=== PATIENT | female | born 1930 | race Caucasian/White ===

== ENCOUNTER 2017-01-22 08:42 | Inpatient (IN) ==
[2017-01-22] MEDS: SALINE FLUSH 10ml SYRINGE IVF PRN ×4 (08:50→17:28)
[2017-01-22] MEDS: ALBUTEROL/IPRATROPIUM 2.5mg-0.5mg/3ml NEB AEROSOL SCH ×3 (09:11→09:46)
[2017-01-22] MEDS ORDERED: IOHEXOL 350mg/ml 75ml INJECTION ONE (10:09)
[2017-01-22] MEDS ORDERED: SALINE FLUSH 10ml SYRINGE ONE (10:10)
[2017-01-22] MEDS ORDERED: NS 100 ML ONE (10:10)
--- NOTE | 2017-01-22 10:28 | Emergency Department Report ---
SOB HPI - General Chief Complaint: Shortness of Breath/Dyspnea Stated Complaint: Diff breathing Time Seen by Provider: 01/22/17 08:53 - History of Present Illness 86-year-old female with acute onset shortness of breath during the night. She has had an occasional episode of dyspnea in the past, but rarely. She began coughing yesterday and then developed difficulty breathing overnight. She is a previous smoker, quit nearly 50 years ago. She's had no chest pain, no nausea or vomiting. She is tired, breathing rapidly. No fever overnight, no dysuria, hesitancy or urgency. No sputum production. No headache. - Related Data Home Medications Medication Instructions Recorded Confirmed Allopurinol [Zyloprim] 100 mg PO HS 01/22/17 01/22/17 Amlodipine [Norvasc] 2.5 mg PO BID 01/22/17 01/22/17 Carvedilol 25 mg PO BID 01/22/17 01/22/17 Lansoprazole [Prevacid] 15 mg PO BID PRN 01/22/17 01/22/17 Losartan [Cozaar] 100 mg PO DAILY 01/22/17 01/22/17 Lovastatin [Mevacor] 20 mg PO HS 01/22/17 01/22/17 Previous Rx's Medication Instructions Recorded Acetaminophen [Tylenol] 500 mg PO Q4H tablet 01/25/17 Furosemide [Lasix] 40 mg PO DAILY #30 tablet 01/25/17 Milk of Magnesia [Mom] 30 ml PO BID PRN udc 01/25/17 Allergies Allergy/AdvReac Type Severity Reaction Status Date / Time chlorpromazine Allergy Severe Hepatoxicit Verified 01/22/17 13:18 y codeine Allergy Severe Allergic Verified 01/22/17 13:18 Asthmatic Reaction morphine Allergy Severe Hives Verified 01/22/17 13:18 Review of Systems Limitations: ROS unobtainable due to patient's medical condition PFSH Patient Stated Medical History Cataracts Yes Dental Problems Yes Hearing Loss Yes Macular Degeneration Yes Angina Yes Hypertension Yes Bronchitis Yes Pneumonia Yes Other GI Yes: diverticulitis Hx Urinary Tract Infection Yes Depression Yes - Social History Smoking status: Former smoker Substance use type: does not use Physical Exam - Limitations Limitations: no limitations - General General appearance: alert, in distress (respiratory) - Normal Exams: Head:: Normocephalic without trauma Neck:: Full range of motion, without adenopathy, JVD, bruits or thyromegaly Cardiovascular:: Regular rate and rhythm, without murmur or gallop, Pulses 2+ all extremities, capillary refill, <2 seconds all extremities Abdomen:: Bowel sounds positive, soft, non-tender, non-distended, no hepatosplenomegaly, masses or bruits noted Musculoskeletal:: No tenderness, or deformity noted, good range of motion, all extremities Integumentary:: No rashes, hives, or bruising noted, hair and nails, without abnormality Neurological:: Patient is alert, and oriented, cranial nerves, motor/sensory/ cerebellar, exams w/o gross deficits, to observation Psychiatric:: Patient exhibits, appropriate attention, emotion and affect - Respiratory Respiratory exam: Present: other (mild expiratory wheezes right side, decreased breath sounds on left.) Course Vital Signs Temperature 97.4 F 01/22/17 08:55 Pulse Rate 85 01/22/17 08:55 Respiratory Rate 26 H 01/22/17 08:55 Blood Pressure 142/107 H 01/22/17 08:55 Pulse Oximetry 82 L 01/22/17 08:55 Temperature 97.3 F 01/25/17 07:00 Pulse Rate 65 01/25/17 13:00 Respiratory Rate 18 01/25/17 07:00 Blood Pressure 153/71 H 01/25/17 07:00 Pulse Oximetry 95 01/25/17 07:00 Shortness of Breath/Dyspnea - [facility] Narrative Medical decision making narrative: Patient has normal white count, elevated BNP with CT of the chest which shows possibility of CHF. She does have wheezes on the right lower lobe consistent with bronchitis. She was given Solu-Medrol 125 IV and Lasix 20 mg IV. She was given 1 L normal saline in total while in the ED. She'll be admitted to hospitalist service as she is requiring oxygen, unable to stand and pivot to the commode without dropping O2 sats from 94% to 84%. That was despite having 4 L of oxygen nasal cannula. She does show signs of old cardiac insult on EKG. I do not see acute sign and troponin is negative today. - Differential Diagnosis Likely: congestive heart failure, asthma with exacerbation - Medical Records Attestation: I reviewed the patient's medical records. - Lab Data Attestation: I reviewed the patient's lab results. Result diagrams: 01/24/17 04:36 01/25/17 04:21 Lab Results 01/22/17 01/22/17 01/22/17 Range/Units 09:20 09:25 09:25 WBC 7.1 (4.5-11.0) T/MM3 RBC 4.20 (4.00-5.20) M/MM3 Hgb 11.8 L (12-16) GM/DL Hct 37.5 (36-46) % MCV 89.3 (80-100) UM3 MCH 28.1 (26-34) UUG MCHC 31.5 (31-37) GM/DL RDW Std Deviation 45.2 (36.9-50.2) FL Plt Count 219 (130-400) T/MM3 MPV 10.1 (9.4-12.4) UM3 Immature Gran % (Auto) 0.1 (0.0-0.5) % Neut % (Auto) 74.3 H (33-66) % Lymph % (Auto) 17.1 L (23-45) % Lawrence % (Auto) 4.8 (0-9.0) % Eos % (Auto) 3.1 (0-4) % Baso % (Auto) 0.6 (0-2) % Neut # 5.3 (1.8-7.7) T/MM3 Lymph # 1.2 (1-4.8) T/MM3 Lawrence # 0.3 (0-0.8) T/MM3 Eos # 0.2 (0-0.5) T/MM3 Baso # 0.0 (0-0.2) T/MM3 Abs Immat Gran (auto) 0.01 (0.00-0.03) T/MM3 INR 1.01 (0.99-1.21) ABG pH 7.360 (7.350-7.450) ABG pCO2 44 (34-45) MMHG ABG pO2 52 L (80-100) MMHG ABG HCO3 25 (22-26) MEQ/L ABG Total CO2 26.3 (23-27) MEQ/L ABG O2 Saturation 85.0 L (95.0-98.0) % ABG Base Excess -0.8 (-2.0-2.0) MMOL/L O2 Delivery Method Room air Turbidity (0-20) Sodium (134-144) MEQ/L Potassium (3.6-5) MEQ/L Chloride (98-107) MEQ/L Carbon Dioxide (22-30) MEQ/L Anion Gap (5-15) MEQ/L BUN (7-17) MG/DL Creatinine (0.7-1.2) MG/DL GFR Calculation BUN/Creatinine Ratio (6-26) RATIO Glucose (65-110) MG/DL Calculated Osmolality (261-280) MOSM/KG Calcium (8.4-10.2) MG/DL Magnesium (1.6-2.3) MG/DL Total Bilirubin (0.20-1.30) MG/DL Icterus Index (0-7) AST (14-36) U/L ALT (9-52) U/L Alkaline Phosphatase (38-126) U/L Troponin I (0-0.12) ng/ml B-Natriuretic Peptide (0-175) pg/mL Total Protein (6.3-8.2) G/DL Albumin (3.5-5.0) G/DL Globulin (2.4-3.6) G/DL Albumin/Globulin Ratio (1.1-2.2) RATIO Plasma Lactate (0.6-2.2) MMOL/L Procalcitonin NG/ML Specimen Hemolysis (0-25) Ur Collection Type Urine Color (YELLOW) Urine Clarity Urine pH (5.0-8.0) Ur Specific [place] (1.015-1.025) Urine Protein (NEGATIVE) Urine Glucose (UA) (NEGATIVE) Urine Ketones (NEGATIVE) Urine Occult Blood (NEGATIVE) Urine Nitrate (NEGATIVE) Urine Bilirubin (NEGATIVE) Urine Urobilinogen (NORMAL) EU/DL Ur Leukocyte Esterase (NEGATIVE) Urinalysis Comment 01/22/17 01/22/17 01/22/17 Range/Units 09:25 09:25 09:25 WBC (4.5-11.0) T/MM3 RBC (4.00-5.20) M/MM3 Hgb (12-16) GM/DL Hct (36-46) % MCV (80-100) UM3 MCH (26-34) UUG MCHC (31-37) GM/DL RDW Std Deviation (36.9-50.2) FL Plt Count (130-400) T/MM3 MPV (9.4-12.4) UM3 Immature Gran % (Auto) (0.0-0.5) % Neut % (Auto) (33-66) % Lymph % (Auto) (23-45) % Lawrence % (Auto) (0-9.0) % Eos % (Auto) (0-4) % Baso % (Auto) (0-2) % Neut # (1.8-7.7) T/MM3 Lymph # (1-4.8) T/MM3 Lawrence # (0-0.8) T/MM3 Eos # (0-0.5) T/MM3 Baso # (0-0.2) T/MM3 Abs Immat Gran (auto) (0.00-0.03) T/MM3 INR (0.99-1.21) ABG pH (7.350-7.450) ABG pCO2 (34-45) MMHG ABG pO2 (80-100) MMHG ABG HCO3 (22-26) MEQ/L ABG Total CO2 (23-27) MEQ/L ABG O2 Saturation (95.0-98.0) % ABG Base Excess (-2.0-2.0) MMOL/L O2 Delivery Method Turbidity < 20 (0-20) Sodium 145 H (134-144) MEQ/L Potassium 4.7 (3.6-5) MEQ/L Chloride 110 H (98-107) MEQ/L Carbon Dioxide 25 (22-30) MEQ/L Anion Gap 10 (5-15) MEQ/L BUN 27.0 H (7-17) MG/DL Creatinine 1.1 (0.7-1.2) MG/DL GFR Calculation 47 BUN/Creatinine Ratio 25 (6-26) RATIO Glucose 157 H (65-110) MG/DL Calculated Osmolality 287 H (261-280) MOSM/KG Calcium 9.2 (8.4-10.2) MG/DL Magnesium 2.1 (1.6-2.3) MG/DL Total Bilirubin 0.70 (0.20-1.30) MG/DL Icterus Index < 2 (0-7) AST 31 (14-36) U/L ALT 36 (9-52) U/L Alkaline Phosphatase 101 (38-126) U/L Troponin I < 0.012 (0-0.12) ng/ml B-Natriuretic Peptide 7130 H (0-175) pg/mL Total Protein 7.8 (6.3-8.2) G/DL Albumin 4.1 (3.5-5.0) G/DL Globulin 3.7 H (2.4-3.6) G/DL Albumin/Globulin Ratio 1.1 (1.1-2.2) RATIO Plasma Lactate 1.0 Cancelled (0.6-2.2) MMOL/L Procalcitonin < 0.05 NG/ML Specimen Hemolysis < 15 (0-25) Ur Collection Type Urine Color (YELLOW) Urine Clarity Urine pH (5.0-8.0) Ur Specific [place] (1.015-1.025) Urine Protein (NEGATIVE) Urine Glucose (UA) (NEGATIVE) Urine Ketones (NEGATIVE) Urine Occult Blood (NEGATIVE) Urine Nitrate (NEGATIVE) Urine Bilirubin (NEGATIVE) Urine Urobilinogen (NORMAL) EU/DL Ur Leukocyte Esterase (NEGATIVE) Urinalysis Comment 01/22/17 Range/Units 11:24 WBC (4.5-11.0) T/MM3 RBC (4.00-5.20) M/MM3 Hgb (12-16) GM/DL Hct (36-46) % MCV (80-100) UM3 MCH (26-34) UUG MCHC (31-37) GM/DL RDW Std Deviation (36.9-50.2) FL Plt Count (130-400) T/MM3 MPV (9.4-12.4) UM3 Immature Gran % (Auto) (0.0-0.5) % Neut % (Auto) (33-66) % Lymph % (Auto) (23-45) % Lawrence % (Auto) (0-9.0) % Eos % (Auto) (0-4) % Baso % (Auto) (0-2) % Neut # (1.8-7.7) T/MM3 Lymph # (1-4.8) T/MM3 Lawrence # (0-0.8) T/MM3 Eos # (0-0.5) T/MM3 Baso # (0-0.2) T/MM3 Abs Immat Gran (auto) (0.00-0.03) T/MM3 INR (0.99-1.21) ABG pH (7.350-7.450) ABG pCO2 (34-45) MMHG ABG pO2 (80-100) MMHG ABG HCO3 (22-26) MEQ/L ABG Total CO2 (23-27) MEQ/L ABG O2 Saturation (95.0-98.0) % ABG Base Excess (-2.0-2.0) MMOL/L O2 Delivery Method Turbidity (0-20) Sodium (134-144) MEQ/L Potassium (3.6-5) MEQ/L Chloride (98-107) MEQ/L Carbon Dioxide (22-30) MEQ/L Anion Gap (5-15) MEQ/L BUN (7-17) MG/DL Creatinine (0.7-1.2) MG/DL GFR Calculation BUN/Creatinine Ratio (6-26) RATIO Glucose (65-110) MG/DL Calculated Osmolality (261-280) MOSM/KG Calcium (8.4-10.2) MG/DL Magnesium (1.6-2.3) MG/DL Total Bilirubin (0.20-1.30) MG/DL Icterus Index (0-7) AST (14-36) U/L ALT (9-52) U/L Alkaline Phosphatase (38-126) U/L Troponin I (0-0.12) ng/ml B-Natriuretic Peptide (0-175) pg/mL Total Protein (6.3-8.2) G/DL Albumin (3.5-5.0) G/DL Globulin (2.4-3.6) G/DL Albumin/Globulin Ratio (1.1-2.2) RATIO Plasma Lactate (0.6-2.2) MMOL/L Procalcitonin NG/ML Specimen Hemolysis (0-25) Ur Collection Type Urine, clean catch Urine Color Yellow (YELLOW) Urine Clarity Clear Urine pH 5.0 (5.0-8.0) Ur Specific [place] 1.025 (1.015-1.025) Urine Protein Negative (NEGATIVE) Urine Glucose (UA) Negative (NEGATIVE) Urine Ketones Negative (NEGATIVE) Urine Occult Blood Trace-intact (NEGATIVE) Urine Nitrate Negative (NEGATIVE) Urine Bilirubin Negative (NEGATIVE) Urine Urobilinogen 0.2 (NORMAL) EU/DL Ur Leukocyte Esterase Trace A (NEGATIVE) Urinalysis Comment Microscopic not ind. - Radiology Data Attestation: I reviewed the patient's radiology results. Disposition Clinical Impression: Congestive heart failure, Acute exacerbation of chronic obstructive airways disease Disposition: 02 To [facility] Acute Care Condition: Improved Time of Disposition: 11:57 - Seen By: physician
[2017-01-22] MEDS ORDERED: METHYLPREDNISOLONE SOD SUCC 125mg/2ml INJECTION IVP ONE (11:44)
[2017-01-22] MEDS ORDERED: FUROSEMIDE 20 MG/2 ML INJECTION IVP ONE (12:08)
--- NOTE | 2017-01-22 12:09 | CT Scan Report ---
Indication: dyspnea CT angio pulm emboli: Comparison: None Technique: Patient scanned after 100 cc Omni 300 intravenous contrast with dose reduction imaging technology and reformatted sagittal, coronal and 3-D MIP imaging. Findings: Patient shows no acute findings in the base of the neck. Patient did seem to show degenerative changes in the lower cervical spine. The coronary arteries are well visualized showing no filling defects to support pulmonary thromboembolism. Heart size is prominent with bilateral pleural effusions and bibasilar atelectasis. Limited imaging below the diaphragm shows atherosclerotic changes in the aorta and visceral abdominal vessels. Pulmonary parenchyma demonstrates some increased interstitial markings with bilateral pleural effusions greater on the right side and more prominent right-sided basilar atelectasis. Impression: 1. Findings suggestive of cardiac decompensation with a prominent heart size, increased interstitial pulmonary markings bilateral pleural effusions with bibasilar atelectasis greater on the right 2. No indication of acute pulmonary thromboembolism .
[2017-01-22 12:29] VITALS: BMI 27.5
--- NOTE | 2017-01-22 13:00 | History & Physical Report ---
<Michaela Sy V - Last Filed: 01/22/17 12:50> History of Present Illness Date: 01/22/17 Chief complaint: dyspnea, respiratory failure with hypoxia, pleural effusions HPI: Patient is a pleasant 86-year-old female who resides independently with her family. She reports that she has noticed for the last several days she is more short of breath. Lasting night at approximately 11 p.m. the dyspnea, significantly worsened. This morning due to her ongoing symptoms and significance in dyspnea, she presents to the emergency room for further acute evaluation and treatment. The WBC count found to be normal at 7.1, hemoglobin 11.7, hematocrit 37.5, platelet count 219, neutrophils 74%. Sodium is 145, potassium 4.7, BUN 27, creatinine 1.1, glucose 157. Troponin is undetectable, proBNP 7130. Venous lactate 1.0, pro calcitonin less than 0.05. Urinalysis is unremarkable. ABG does reveal hypoxia with a pO2 of 53, pH 7.360, pCO2 44, bicarbonate 25. INR 1.01. She does tachypnea breathing 28-32 times a minute. She required 4 liters of oxygen by nasal cannula to maintain adequate saturations. Will place patient on room air. She desaturated to 84%. Patient was hypertensive on the emergency room 180-190s over 90s. CT scan of the chest was obtained to rule out. There was, findings that suggested cardiac decompensation with increased interstitial pulmonary markings and bilateral pleural effusions. No acute pulmonary thrombus. Given her hypoxia and tachypnea, obtained with findings of pleural effusions The hospitalist services were contacted and accepted patient for inpatient admission for further evaluation and treatment. Is expected that her stay will be greater than 2 overnights Madelyn is seen on initial examination. She is alert, oriented and pleasant and her family is at the bedside. She reports has been under the care of Dr. Sandeep Liao (crime scene specialist). Did review his notes from the office as he last saw her on October 20, 2016. At that time, patient was started on Lasix 40 milligrams daily, however only took it approximately one week at which time her primary care provider had her discontinue use. Dr. Liao has been working on better blood pressure control. However, patient states has had uncontrolled hypertension for the past 6 months. Urology recommended the following regimen Lasix 40, Coreg 25 twice a day, Norvasc 2.5mg, losartan 100 milligrams. We did discuss advanced directives and she does request to be a full code. 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 Pulmonary hypertension Hyperlipidemia spinal stenosis GERD History of breast cancer with radiation History of colon cancer with resection-07/09/16- Echocardiogram EF 70% adjusted diastolic dysfunction, mild to moderate mitral regurgitation, moderate to severe tricuspid regurgitation, evidence of moderate pulmonary hypertension 07/16/16-nuclear medicine VQ scan- revealed normal ventilation and lung perfusion 07/16/16- Bilateral lower extremity Doppler- negative for DVT Surgical History: Partial colon resection-. Left breast lumpectomy. Cholecystectomy. Colonoscopy Family History: Father-alcoholism, atherosclerosis Mother- hemachromatosis, glaucoma - Social History Smoking status: Former smoker (, quit 1966) Substance use type: does not use Alcohol intake frequency: does not drink Housing: house Household members: family, children Current residence: Apartment/Private Home Social history: Primary care provider, Dr. Fernando Austin Credentialing Coordinator Dr. Sandeep Liao Medications Home Medications Medication Instructions Recorded Confirmed Type Allopurinol [Zyloprim] 100 mg PO HS 01/22/17 01/22/17 History Amlodipine [Norvasc] 2.5 mg PO BID 01/22/17 01/22/17 History Carvedilol [Carvedilol] 25 mg PO BID 01/22/17 01/22/17 History Lansoprazole [Prevacid] 15 mg PO BID PRN 01/22/17 01/22/17 History Losartan [Cozaar] 100 mg PO DAILY 01/22/17 01/22/17 History Lovastatin [Mevacor] 20 mg PO HS 01/22/17 01/22/17 History Naproxen Sodium [Aleve] 220 mg PO PRN 01/22/17 History Allergies Allergy/AdvReac Type Severity Reaction Status Date / Time chlorpromazine Allergy Severe Hepatoxicit Verified 01/22/17 13:18 y codeine Allergy Severe Allergic Verified 01/22/17 13:18 Asthmatic Reaction morphine Allergy Severe Hives Verified 01/22/17 13:18 Exam Vital Signs: Temperature 95.4 F L 01/22/17 12:27 Pulse Rate 76 01/22/17 12:27 Respiratory Rate 26 H 01/22/17 12:27 Blood Pressure 173/90 H 01/22/17 12:27 Pulse Oximetry 93 01/22/17 12:27 Oxygen Delivery Method Nasal Cannula Oxygen Flow Rate 4 Telemetry Rhythm: Sinus Rhythm Height: 1.65 m Weight: 75.1 kg Body Mass Index: 27.5 - Constitutional Present: no acute distress, mild distress, well developed - Routine HEENT Exam Eye: Present: EOMI, PERRL ENT: Present: mucous membranes moist, dentition normal - Routine Respiratory Exam Present: dyspnea, CTA bilaterally, diminished air movement (bases bilaterally). Absent: wheezes Comments: Conversational dyspnea. On exam - Routine Cardiovascular Exam Present: RRR, S1, S2. Absent: murmur - Routine Abdominal Exam Present: soft, normoactive bowel sounds, non distended. Absent: tenderness - Routine Extremities Exam Present: edema (bilateral lower ext 1+), normal capillary refill - Routine Back/Spine/Pelvis Exam Back/Spine: Present: full ROM - Routine Skin Exam Present: intact, dry, warm - Routine Neurological Exam Present: alert, oriented X3, CN II-XII intact - Routine Psychiatric Exam Present: normal affect, normal thought process Results - Labs CBC & Chem 7: 01/22/17 09:25 01/22/17 09:25 Assessment and Plan (1) Respiratory failure with hypoxia Current visit: Yes Status: Acute (2) Pleural effusion Current visit: Yes Status: Acute DVT Prophylaxis: SCD's Resuscitation Status: Full Code Assessment and Plan: Impression Acute respiratory failure with hypoxia requiring oxygen Bilateral pleural effusions Peripheral edema History of uncontrolled hypertension Known pulmonary hypertension Hyperlipidemia Bgi-rgvikam-yxgsnntue diabetic Chronic kidney disease Chronic back pain GERD Plan Patient to inpatient status under the care of Dr. Quinones for acute respiratory failure with hypoxia and pleural effusions. Did receive one-time dose of Lasix 20 milligrams IV while in the emergency room today. We will continue with scheduled Lasix for more aggressive diuresing. Monitor patient on Cardiac telemetry. Will obtain echocardiogram. Did review last echo results from June 2016. Currently MAGGIC heart failure risk calculator reveals 31 points, which is a 26 % one-year mortality for this patient using her last EF of of 70% Continue to monitor blood pressure carefully. Current recommended hypertension management as per Dr. Liao is to continue on losartan 100 milligrams daily, Coreg 25 milligrams twice a day, Norvasc 2.5 milligrams twice a day. He also recommended Lasix 40 milligrams daily She will likely need to be on this at time of discharge. It appears that patient did not take any of her antihypertensives this morning. Will have patient take the Coreg and losartan now on admission. Recommend avoiding NSAIDs as this can rise blood pressure. Would recommend Tylenol as needed for chronic back pain. SCDs to bilateral lower extremity for DVT prophylaxis Continue on home Prevacid for GI protection given GERD Patient does request to be a full code and this order is written. Will discuss further orders and plan of care with attending, Dr. Quinones. At time of discharge medical care will return to primary care provider, Dr. Austin and crime scene specialist, Dr. Liao. Sepsis Assessment - Evaluation Sepsis screening result: No Definite Risk Hospital Course Summary Disclaimer: The visit summary below is not to be considered part of the above Progress Note. Hospital Course: 01/22/17- Admit Acute respiratory failure with hypoxia requiring oxygen Bilateral pleural effusions Peripheral edema History of uncontrolled hypertension Known pulmonary hypertension Hyperlipidemia Kdi-woywyfs-yoyvtxfdo diabetic Chronic kidney disease Chronic back pain GERD Plan Patient to inpatient status under the care of Dr. Quinones for acute respiratory failure with hypoxia and pleural effusions. Did receive one-time dose of Lasix 20 milligrams IV while in the emergency room today. We will continue with scheduled Lasix for more aggressive diuresing. Monitor patient on Cardiac telemetry. Will obtain echocardiogram. Did review last echo results from June 2016. Currently MAGGIC heart failure risk calculator reveals 31 points, which is a 26 % one-year mortality for this patient using her last EF of of 70% Continue to monitor blood pressure carefully. Current recommended hypertension management as per Dr. Liao is to continue on losartan 100 milligrams daily, Coreg 25 milligrams twice a day, Norvasc 2.5 milligrams twice a day. He also recommended Lasix 40 milligrams daily She will likely need to be on this at time of discharge. It appears that patient did not take any of her antihypertensives this morning. Will have patient take the Coreg and losartan now on admission. Recommend avoiding NSAIDs as this can rise blood pressure. Would recommend Tylenol as needed for chronic back pain. SCDs to bilateral lower extremity for DVT prophylaxis Continue on home Prevacid for GI protection given GERD Patient does request to be a full code and this order is written. Will discuss further orders and plan of care with attending, Dr. Quinones. At time of discharge medical care will return to primary care provider, Dr. Austin and crime scene specialist, Dr. Liao. <JoniMaribel A - Last Filed: 01/22/17 17:49> History of Present Illness Date: 01/22/17 [facility] Patient Stated Medical History Cataracts Yes Dental Problems Yes Macular Degeneration Yes Angina Yes: yrs ago Hypertension Yes Bronchitis Yes Pneumonia Yes Other GI Yes: diverticulitis Depression Yes Exam Vital Signs: Temperature 95.5 F L 01/22/17 15:00 Pulse Rate 74 01/22/17 16:10 Respiratory Rate 18 01/22/17 16:10 Blood Pressure 161/94 H 01/22/17 15:00 Pulse Oximetry 93 01/22/17 16:10 Oxygen Delivery Method Nasal Cannula Oxygen Flow Rate 4 Height: 5 ft 5 in Weight: 165 lb 9.074 oz Results - Labs CBC & Chem 7: 01/22/17 13:31 01/22/17 13:31 Assessment and Plan (1) Respiratory failure with hypoxia Current visit: Yes Status: Acute (2) Pleural effusion Current visit: Yes Status: Acute Assessment and Plan: I have independently evaluated and examined this patient. I reviewed the chart, the patient's history, and the AEROSP[employer] ENGINEER OFFICER ARMAMENT/PA's documented findings as above. We discussed and formulated the assessment and plan as above with additions as below. The patient was seen and examined by me this afternoon. Agree with assessment and plan as listed above. Suspect most of the patient's problem is fluid overload. She is responding nicely to Lasix. We will need to watch her potassium closely. She has had long-standing uncontrolled hypertension followed by Dr. Sandeep Liao. Her care was discussed with the patient in her family. Their questions were answered. Hospital Course Summary Disclaimer: The visit summary below is not to be considered part of the above Progress Note.
[2017-01-22] MEDS: CARVEDILOL 25 MG TABLET PO SCH ×2 (13:49→17:28)
[2017-01-22] MEDS: LOSARTAN 100 MG TABLET PO SCH (13:49)
[2017-01-22] MEDS: ACETAMINOPHEN 500 MG TABLET PO SCH ×3 (13:55→21:04)
[2017-01-22] MEDS: FUROSEMIDE 20 MG/2 ML INJECTION IVP SCH (17:27)
[2017-01-22] MEDS: ALLOPURINOL 100 MG TABLET PO SCH (21:04)
[2017-01-22] MEDS: LOVASTATIN 20 MG TABLET PO SCH (21:05)
[2017-01-22] MEDS: AMLODIPINE 2.5 MG TABLET PO SCH (21:05)
[2017-01-23] MEDS: FUROSEMIDE 20 MG/2 ML INJECTION IVP SCH ×2 (00:56→09:11)
[2017-01-23] MEDS: ACETAMINOPHEN 500 MG TABLET PO SCH ×6 (00:57→21:09)
[2017-01-23] MEDS: SALINE FLUSH 10ml SYRINGE IVF PRN ×2 (00:59→09:11)
[2017-01-23] MEDS ORDERED: PANTOPRAZOLE 40 MG TABLET PO PRN (06:30)
[2017-01-23] MEDS: AMLODIPINE 2.5 MG TABLET PO SCH ×2 (09:11→21:09)
[2017-01-23] MEDS: LOSARTAN 100 MG TABLET PO SCH (09:11)
[2017-01-23] MEDS: CARVEDILOL 25 MG TABLET PO SCH ×2 (09:12→17:22)
--- NOTE | 2017-01-23 11:46 | Progress Note ---
Subjective: The patient was seen11:20 at with her daughter and son-in-law at bedside. The patient reports doing well and slept well during the night. Denies fevers, chills, sweats. Denies sore throat, shortness of breath, dyspnea on exertion, cough, sputum production, chest pain. Denies nausea, vomiting or for she's had 2 episodes of loose stools and was incontinent in bed once. She is urinating without difficulty, denies dysuria. Overall she is doing much better this morning. She is currently on room air. Her blood pressure is actually down to 148/71. Objective Vital signs: Temperature 96.9 F 01/23/17 09:00 Pulse Rate 68 01/23/17 09:00 Respiratory Rate 16 01/23/17 09:00 Blood Pressure 148/71 H 01/23/17 09:00 Pulse Oximetry 97 01/23/17 09:21 Oxygen Delivery Method Room Air Oxygen Flow Rate 2 Weight: 164 lb 7.437 oz - Additional findings Additional findings: In general, the patient is alert and oriented 3, cooperative with exam, and in no respiratory distress. HEENT: Head is atraumatic, normocephalic, no conjunctival petechiae, no oral thrush, mucous membranes are moist and pink. Lungs: Clear to auscultation without wheezes, crackles or rhonchi CV: Regular rate and rhythm without murmur Abdomen: Soft, nontender, bowel sounds are present, there is no guarding no rebound. Extremities: No clubbing, no cyanosis, no edema. Skin: Warm and dry no sign of rash Neuro: Patient is alert Results - Labs CBC & Chem 7: 01/23/17 05:15 01/23/17 05:15 Assessment and Plan (1) Respiratory failure with hypoxia Current visit: Yes Status: Acute (2) Pleural effusion Current visit: Yes Status: Acute Assessment and Plan: Acute respiratory failure with hypoxia requiring oxygen related to fluid overload, greatly improved today after IV Lasix Bilateral pleural effusions improved Peripheral edema resolved History of uncontrolled hypertension-her blood pressure today is 148/71 Known pulmonary hypertension Hyperlipidemia Cpm-uifpgec-jtfydhzqw diabetic Chronic kidney disease-her creatinine is up today at 1.3 Chronic back pain GERD Plan Monitor patient on Cardiac telemetry. Results of echocardiogram were reviewed yesterday, formal report is not on the chart today. I believe she did have mitral regurg, will await to confirm that with the final reading. Did review last echo results from June 2016. Continue to monitor blood pressure carefully. Current recommended hypertension management as per Dr. Liao is to continue on losartan 100 milligrams daily, Coreg 25 milligrams twice a day, Norvasc 2.5 milligrams twice a day. He also recommended Lasix 40 milligrams daily and we will restart that today. She may need to potassium supplementation as well. Will recheck lab in the morning. Recommend avoiding NSAIDs as this can rise blood pressure. Would recommend Tylenol as needed for chronic back pain. SCDs to bilateral lower extremity for DVT prophylaxis Continue on home Prevacid for GI protection given GERD At time of discharge medical care will return to primary care provider, Dr. Austin and brick paving checker, Dr. Liao. The patient has an appointment was Dr. Liao scheduled for next Tuesday. This was discussed with patient and her family. Sepsis Assessment - Evaluation Sepsis screening result: No Definite Risk Hospital Course Summary Disclaimer: The visit summary below is not to be considered part of the above Progress Note. Hospital Course: 01/22/17- Admit Acute respiratory failure with hypoxia requiring oxygen Bilateral pleural effusions Peripheral edema History of uncontrolled hypertension Known pulmonary hypertension Hyperlipidemia Fmn-fjmijuu-lnvhhjrwa diabetic Chronic kidney disease Chronic back pain GERD Plan Patient to inpatient status under the care of Dr. Quinones for acute respiratory failure with hypoxia and pleural effusions. Did receive one-time dose of Lasix 20 milligrams IV while in the emergency room today. We will continue with scheduled Lasix for more aggressive diuresing. Monitor patient on Cardiac telemetry. Will obtain echocardiogram. Did review last echo results from June 2016. Currently MAGGIC heart failure risk calculator reveals 31 points, which is a 26 % one-year mortality for this patient using her last EF of of 70% Continue to monitor blood pressure carefully. Current recommended hypertension management as per Dr. Liao is to continue on losartan 100 milligrams daily, Coreg 25 milligrams twice a day, Norvasc 2.5 milligrams twice a day. He also recommended Lasix 40 milligrams daily She will likely need to be on this at time of discharge. It appears that patient did not take any of her antihypertensives this morning. Will have patient take the Coreg and losartan now on admission. Recommend avoiding NSAIDs as this can rise blood pressure. Would recommend Tylenol as needed for chronic back pain. SCDs to bilateral lower extremity for DVT prophylaxis Continue on home Prevacid for GI protection given GERD Patient does request to be a full code and this order is written. Will discuss further orders and plan of care with attending, Dr. Quinones. At time of discharge medical care will return to primary care provider, Dr. Austin and brick paving checker, Dr. Liao. 01/23/17 11:52 Acute respiratory failure with hypoxia requiring oxygen related to fluid overload, greatly improved today after IV Lasix Bilateral pleural effusions improved Peripheral edema resolved History of uncontrolled hypertension-her blood pressure today is 148/71 Known pulmonary hypertension Hyperlipidemia Tvq-lxiqzcz-rpnlmjdfb diabetic Chronic kidney disease-her creatinine is up today at 1.3 Chronic back pain GERD Plan Monitor patient on Cardiac telemetry. Results of echocardiogram were reviewed yesterday, formal report is not on the chart today. I believe she did have mitral regurg, will await to confirm that with the final reading. Did review last echo results from June 2016. Continue to monitor blood pressure carefully. Current recommended hypertension management as per Dr. Liao is to continue on losartan 100 milligrams daily, Coreg 25 milligrams twice a day, Norvasc 2.5 milligrams twice a day. He also recommended Lasix 40 milligrams daily and we will restart that today. She may need to potassium supplementation as well. Will recheck lab in the morning. Recommend avoiding NSAIDs as this can rise blood pressure. Would recommend Tylenol as needed for chronic back pain. SCDs to bilateral lower extremity for DVT prophylaxis Continue on home Prevacid for GI protection given GERD At time of discharge medical care will return to primary care provider, Dr. Austin and brick paving checker, Dr. Liao. The patient has an appointment was Dr. Liao scheduled for next Tuesday. This was discussed with patient and her family
--- NOTE | 2017-01-23 14:12 | XRay Report ---
Indication: hypoxia XR chest 2V: Comparison: None Technique: PA and lateral chest Findings: Patient shows mild cardiac prominence with increased interstitial markings and minimal blunting of both costophrenic angles suggesting small effusions. No acute bony abnormality appreciated. Degenerative changes seen particularly about the right shoulder. Impression: Mild cardiac prominence with increased interstitial markings and small amount of blunting of both costophrenic angles suggesting small effusions. Findings would suggest possibility of mild cardiac decompensation. .
[2017-01-23] MEDS: ALLOPURINOL 100 MG TABLET PO SCH (21:09)
[2017-01-23] MEDS: LOVASTATIN 20 MG TABLET PO SCH (21:09)
[2017-01-24] MEDS: ACETAMINOPHEN 500 MG TABLET PO SCH ×6 (01:49→21:34)
[2017-01-24] MEDS: SALINE FLUSH 10ml SYRINGE IVF PRN (06:08)
--- NOTE | 2017-01-24 07:36 | Echocardiogram ---
DATE OF PROCEDURE January 22, 2017 REFERRING PHYSICIAN Michaela Sy, [facility] This is a two-dimensional echo with spectral Doppler, color-flow and M-mode. It was obtained in a patient with edema, CHF and hypertension. Left atrial dimension is increased. Left ventricular end-diastolic dimension is normal. Left ventricle wall thickness is increased. LV systolic function is normal with ejection fraction of 65%. Right atrium is dilated. Right ventricle is dilated. Aortic root dimension is normal. Mitral valve annulus is calcified. Mitral valve leaflets are normal with severe mitral regurgitation. Aortic valve shows fibrocalcific changes with mild restriction on opening motion. Using Doppler studies aortic valve area is calculated at 1.28 cm2. There is no aortic insufficiency. Tricuspid valve shows moderate tricuspid regurgitation with gtpvzwkd-zf-rkvuji pulmonary hypertension with estimated pulmonary artery systolic pressure of 66. Pulmonary valve shows no pulmonary insufficiency. There is no pericardial effusion. IMPRESSION 1. Normal LV systolic function with ejection fraction of 65%. 2. Biatrial dilation. 3. Right ventricular dilation. 4. Concentric left ventricular hypertrophy. 5. Mitral annulus calcification with severe mitral regurgitation. 6. Mild aortic stenosis with a valve area of 1.28 cm2. 7. Moderate tricuspid regurgitation with [id number]-dr-[id number] pulmonary hypertension with estimated pulmonary artery systolic pressure of 66. MTDD
[2017-01-24] MEDS: AMLODIPINE 2.5 MG TABLET PO SCH ×2 (08:04→21:34)
[2017-01-24] MEDS: FUROSEMIDE 40 MG TABLET PO SCH (08:04)
[2017-01-24] MEDS: CARVEDILOL 25 MG TABLET PO SCH ×2 (08:04→17:05)
[2017-01-24] MEDS: LOSARTAN 100 MG TABLET PO SCH (08:04)
--- NOTE | 2017-01-24 11:02 | Progress Note ---
<Michaela Sy V - Last Filed: 01/24/17 10:58> Subjective: Madelyn is seen this morning in follow up. She is breathing on room air without distress. She reports that overall she is feeling better however does continue to get "winded" when up ambulating. She denies pain and reports overall feels tired. Voiding without difficulty, No bowel movements since admission. Objective Vital signs: Temperature 97.5 F 01/24/17 07:39 Pulse Rate 68 01/24/17 07:39 Respiratory Rate 16 01/24/17 07:39 Blood Pressure 158/74 H 01/24/17 07:39 Pulse Oximetry 93 01/24/17 07:39 Oxygen Delivery Method Room Air Oxygen Flow Rate 2 Weight: 160 lb 11.472 oz - Constitutional Present: no acute distress, well nourished, well developed - Routine HEENT Exam Eye: Present: EOMI, PERRL ENT: Present: mucous membranes moist, dentition normal - Routine Respiratory Exam Present: CTA bilaterally. Absent: wheezes - Routine Cardiovascular Exam Present: RRR, S1, S2. Absent: murmur - Routine Abdominal Exam Present: soft, normoactive bowel sounds, non distended. Absent: tenderness - Routine Extremities Exam Present: edema (bilateral lower ext), full ROM, normal capillary refill - Routine Back/Spine/Pelvis Exam Back/Spine: Present: full ROM - Routine Skin Exam Present: intact, dry, warm - Routine Neurological Exam Present: alert, oriented X3, CN II-XII intact - Routine Lymphatic Exam Lymphatic: Absent: adenopathy - Routine Psychiatric Exam Present: normal affect, normal thought process Results - Labs CBC & Chem 7: 01/24/17 04:36 01/24/17 04:36 Assessment and Plan (1) Respiratory failure with hypoxia Current visit: Yes Status: Acute (2) Pleural effusion Current visit: Yes Status: Acute Assessment and Plan: Acute respiratory failure with hypoxia requiring oxygen related to fluid overload, greatly improved today after IV Lasix Bilateral pleural effusions improved Peripheral edema resolved History of uncontrolled hypertension-her blood pressure today is 148/71 Known pulmonary hypertension Hyperlipidemia Ilx-zdpkqfl-mndyrrmdm diabetic Chronic kidney disease-her creatinine is up today at 1.3 Chronic back pain GERD Plan 01/24/17 Able to be down to room air this morning. She does continue to feel somewhat winded when she is up and ambulating. Will have respiratory therapy obtain an ambulatory saturation. Continue to monitor blood pressure carefully. Continue on current regimen of antihypertensives losartan 100 milligrams daily, Coreg 25 milligrams twice a day , Norvasc 2.5 milligrams twice a day. Continue with Lasix 40 milligrams daily for ongoing diuresising. Monitor potassium as she may require PO supplementation Consult placed to PT and OT to evaluate ambulation and strengthening. Tylenol as needed for chronic back pain. Sepsis Assessment - Evaluation Sepsis screening result: No Definite Risk Hospital Course Summary Disclaimer: The visit summary below is not to be considered part of the above Progress Note. Hospital Course: 01/22/17- Admit Acute respiratory failure with hypoxia requiring oxygen Bilateral pleural effusions Peripheral edema History of uncontrolled hypertension Known pulmonary hypertension Hyperlipidemia Cvk-ernjdwt-wgmxwkmgx diabetic Chronic kidney disease Chronic back pain GERD Plan Patient to inpatient status under the care of Dr. Quinones for acute respiratory failure with hypoxia and pleural effusions. Did receive one-time dose of Lasix 20 milligrams IV while in the emergency room today. We will continue with scheduled Lasix for more aggressive diuresing. Monitor patient on Cardiac telemetry. Will obtain echocardiogram. Did review last echo results from June 2016. Currently MAGGIC heart failure risk calculator reveals 31 points, which is a 26 % one-year mortality for this patient using her last EF of of 70% Continue to monitor blood pressure carefully. Current recommended hypertension management as per Dr. Liao is to continue on losartan 100 milligrams daily, Coreg 25 milligrams twice a day, Norvasc 2.5 milligrams twice a day. He also recommended Lasix 40 milligrams daily She will likely need to be on this at time of discharge. It appears that patient did not take any of her antihypertensives this morning. Will have patient take the Coreg and losartan now on admission. Recommend avoiding NSAIDs as this can rise blood pressure. Would recommend Tylenol as needed for chronic back pain. SCDs to bilateral lower extremity for DVT prophylaxis Continue on home Prevacid for GI protection given GERD Patient does request to be a full code and this order is written. Will discuss further orders and plan of care with attending, Dr. Quinones. At time of discharge medical care will return to primary care provider, Dr. Austin and assistant professor of communication, Dr. Liao. 01/23/17 11:52 Acute respiratory failure with hypoxia requiring oxygen related to fluid overload, greatly improved today after IV Lasix Bilateral pleural effusions improved Peripheral edema resolved History of uncontrolled hypertension-her blood pressure today is 148/71 Known pulmonary hypertension Hyperlipidemia Aar-ezxrvic-xmzpdczbe diabetic Chronic kidney disease-her creatinine is up today at 1.3 Chronic back pain GERD Plan Monitor patient on Cardiac telemetry. Results of echocardiogram were reviewed yesterday, formal report is not on the chart today. I believe she did have mitral regurg, will await to confirm that with the final reading. Did review last echo results from June 2016. Continue to monitor blood pressure carefully. Current recommended hypertension management as per Dr. Liao is to continue on losartan 100 milligrams daily, Coreg 25 milligrams twice a day, Norvasc 2.5 milligrams twice a day. He also recommended Lasix 40 milligrams daily and we will restart that today. She may need to potassium supplementation as well. Will recheck lab in the morning. Recommend avoiding NSAIDs as this can rise blood pressure. Would recommend Tylenol as needed for chronic back pain. SCDs to bilateral lower extremity for DVT prophylaxis Continue on home Prevacid for GI protection given GERD At time of discharge medical care will return to primary care provider, Dr. Austin and assistant professor of communication, Dr. Liao. The patient has an appointment was Dr. Liao scheduled for next Tuesday. Plan 01/24/17 Able to be down to room air this morning. She does continue to feel somewhat winded when she is up and ambulating. Will have respiratory therapy obtain an ambulatory saturation. Continue to monitor blood pressure carefully. Continue on current regimen of antihypertensives losartan 100 milligrams daily, Coreg 25 milligrams twice a day , Norvasc 2.5 milligrams twice a day. Continue with Lasix 40 milligrams daily for ongoing diuresising. Monitor potassium as she may require PO supplementation Consult placed to PT and OT to evaluate ambulation and strengthening. Tylenol as needed for chronic back pain. <Maribel Quinones - Last Filed: 01/24/17 14:54> Objective Vital signs: Temperature 97.5 F 01/24/17 07:39 Pulse Rate 76 01/24/17 11:22 Respiratory Rate 16 01/24/17 07:39 Blood Pressure 158/74 H 01/24/17 07:39 Pulse Oximetry 96 01/24/17 11:22 Oxygen Delivery Method Room Air Oxygen Flow Rate 2 Results - Labs CBC & Chem 7: 01/24/17 04:36 01/24/17 04:36 - Imaging and Cardiology CT scan - chest Additional comments: This morning the preliminary radiology report from the rash on her CT angiography has been scanned in. 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 Assessment and Plan (1) Respiratory failure with hypoxia Current visit: Yes Status: Acute (2) Pleural effusion Current visit: Yes Status: Acute Assessment and Plan: I have independently evaluated and examined this patient. I reviewed the chart, the patient's history, and the HOCKEY PLAYER/PA's documented findings as above. We discussed and formulated the assessment and plan as above with additions as below. The patient was seen 14:20 The patient reports doing well and slept well during the night until she was woken up for blood work and vital signs. Denies fevers, chills, sweats. Denies sore throat, shortness of breath, dyspnea on exertion, she has a dry cough. She continues to be constipated. Is urinating without difficulty, denies dysuria. In general, the patient is alert and oriented 3, cooperative with exam, and in no respiratory distress. HEENT: Head is atraumatic, normocephalic, no conjunctival petechiae, no oral thrush, mucous membranes are moist and pink. Lungs: Clear to auscultation without wheezes, crackles, occasional rhonchi present CV: Regular rate and rhythm without murmur Abdomen: Soft, nontender, bowel sounds are present, there is no guarding no rebound. Extremities: No clubbing, no cyanosis, trace edema. Skin: Warm and dry no sign of rash Neuro: Patient is alert Please note she has an incidental adenoma on the right The patient has not had a bowel movement since admission and will start milk of magnesia when necessary. She feels much better since resuming Lasix, her blood pressures are markedly improved. She expresses many concerns about who she is should talk to after she is discharged if she notes a change in her weight or increasing swelling of her ankles. She does have an appointment to see Dr. Sandeep Liao on Tuesday, I suggested she talk with him about these issues as well. We'll recheck BMP in the morning, suspect she will need potassium supplement at discharge Have ordered an overnight oximetry oximetry for this evening And to supinate discharge tomorrow if all goes well. Hospital Course Summary Disclaimer: The visit summary below is not to be considered part of the above Progress Note.
[2017-01-24] MEDS: LOVASTATIN 20 MG TABLET PO SCH (21:34)
[2017-01-24] MEDS: ALLOPURINOL 100 MG TABLET PO SCH (21:34)
[2017-01-25] MEDS: ACETAMINOPHEN 500 MG TABLET PO SCH ×3 (02:08→14:18)
[2017-01-25 07:44] VITALS: BP 153/71; RESP 18; TEMP 97.3; O2SAT 95
[2017-01-25] MEDS: LOSARTAN 100 MG TABLET PO SCH (08:52)
[2017-01-25] MEDS: CARVEDILOL 25 MG TABLET PO SCH (08:52)
[2017-01-25] MEDS: AMLODIPINE 2.5 MG TABLET PO SCH (08:52)
[2017-01-25] MEDS: FUROSEMIDE 40 MG TABLET PO SCH (08:52)
--- NOTE | 2017-01-25 13:03 | Discharge Instructions ---
Discharge Plan - Med Rec/Dispo Referrals/Follow Up: Arnel Austin MD [Family Provider] - Sandeep Liao MD [Physician] - (Follow up tomorrow 01/26 as planned) [place] Instructions: Hypoxia (GEN) Prescriptions: New Acetaminophen [Tylenol] 500 mg PO Q4H tablet Milk of Magnesia [Mom] 30 ml PO BID PRN udc PRN Reason: Constipation Furosemide [Lasix] 40 mg PO DAILY #30 tablet Continue Lovastatin [Mevacor] 20 mg PO HS Amlodipine [Norvasc] 2.5 mg PO BID Losartan [Cozaar] 100 mg PO DAILY Lansoprazole [Prevacid] 15 mg PO BID PRN PRN Reason: Prn Orders Allopurinol [Zyloprim] 100 mg PO HS Carvedilol 25 mg PO BID Discontinued Naproxen Sodium [Aleve] 220 mg PO PRN PRN Reason: Pain Discharge Instructions/Outpatient Orders: Final Provider Discharge Instructions Location: Determined By Patient Final Provider Discharge Instructions Location: Determined By Patient - Disposition 01 Discharged Home, Self-Care
--- NOTE | 2017-01-25 13:23 | Discharge Summary ---
<Michaela Sy V - Last Filed: 01/25/17 13:20> Discharge Information Date of admission: 01/22/17 12:12 Anticipated date of discharge: 01/25/17 Attending Physician: Maribel Quinones MD Primary care physician: Arnel Austin MD Consults: None - Discharge Diagnosis Discharge Diagnosis: Pleural effusion Acute respiratory failure with hypoxia Peripheral edema Uncontrolled hypertension chronic kidney disease Chronic back pain - Procedures Procedures: None - Laboratory Labs: 01/24/17 04:36 01/25/17 04:21 - Microbiology Microbiology 01/22/17 09:25 Peripheral/Iv Start Blood Culture - Preliminary No Growth After 3 Days 01/22/17 09:33 Peripheral/Iv Start Blood Culture - Preliminary No Growth After 3 Days - Radiology Radiology: 01/22/17-CT chest-Impression: 1. Findings suggestive of cardiac decompensation with a prominent heart size, increased interstitial pulmonary markings bilateral pleural effusions with bibasilar atelectasis greater on the right 2. No indication of acute pulmonary thromboembolism 01/22/17-echocardiogram IMPRESSION 1. Normal LV systolic function with ejection fraction of 65%. 2. Biatrial dilation. 3. Right ventricular dilation. 4. Concentric left ventricular hypertrophy. 5. Mitral annulus calcification with severe mitral regurgitation. 6. Mild aortic stenosis with a valve area of 1.28 cm2. 7. Moderate tricuspid regurgitation with miiblpqz-[id number]-vzaoga pulmonary hypertension with estimated pulmonary artery systolic pressure of 66. 01/23/17- Chest X-ray- Impression: Mild cardiac prominence with increased interstitial markings and small amount of blunting of both costophrenic angles suggesting small effusions. Findings would suggest possibility of mild cardiac decompensation. - Pathology None History of Present Illness HPI: Patient is a pleasant 86-year-old female who resides independently with her family. She reports that she has noticed for the last several days she is more short of breath. Lasting night at approximately 11 p.m. the dyspnea, significantly worsened. This morning due to her ongoing symptoms and significance in dyspnea, she presents to the emergency room for further acute evaluation and treatment. The WBC count found to be normal at 7.1, hemoglobin 11.7, hematocrit 37.5, platelet count 219, neutrophils 74%. Sodium is 145, potassium 4.7, BUN 27, creatinine 1.1, glucose 157. Troponin is undetectable, proBNP 7130. Venous lactate 1.0, pro calcitonin less than 0.05. Urinalysis is unremarkable. ABG does reveal hypoxia with a pO2 of 53, pH 7.360, pCO2 44, bicarbonate 25. INR 1.01. She does tachypnea breathing 28-32 times a minute. She required 4 liters of oxygen by nasal cannula to maintain adequate saturations. Will place patient on room air. She desaturated to 84%. Patient was hypertensive on the emergency room 180-190s over 90s. CT scan of the chest was obtained to rule out. There was, findings that suggested cardiac decompensation with increased interstitial pulmonary markings and bilateral pleural effusions. No acute pulmonary thrombus. Given her hypoxia and tachypnea, obtained with findings of pleural effusions The hospitalist services were contacted and accepted patient for inpatient admission for further evaluation and treatment. Is expected that her stay will be greater than 2 overnights Madelyn is seen on initial examination. She is alert, oriented and pleasant and her family is at the bedside. She reports has been under the care of Dr. Sandeep Liao (doughnut maker). Did review his notes from the office as he last saw her on October 20, 2016. At that time, patient was started on Lasix 40 milligrams daily, however only took it approximately one week at which time her primary care provider had her discontinue use. Dr. Liao has been working on better blood pressure control. However, patient states has had uncontrolled hypertension for the past 6 months. Urology recommended the following regimen Lasix 40, Coreg 25 twice a day, Norvasc 2.5mg, losartan 100 milligrams. We did discuss advanced directives and she does request to be a full code. Objective Vital signs: Temperature 97.3 F 01/25/17 07:00 Pulse Rate 72 01/25/17 07:00 Respiratory Rate 18 01/25/17 07:00 Blood Pressure 153/71 H 01/25/17 07:00 Pulse Oximetry 95 01/25/17 07:00 Oxygen Delivery Method Room Air Oxygen Flow Rate 2 Weight: 158 lb 8.198 oz - Constitutional Present: no acute distress, well nourished, well developed - Routine HEENT Exam Eye: Present: EOMI, PERRL ENT: Present: mucous membranes moist, dentition normal - Routine Respiratory Exam Present: CTA bilaterally. Absent: wheezes - Routine Cardiovascular Exam Present: RRR, S1, S2. Absent: murmur - Routine Abdominal Exam Present: soft, normoactive bowel sounds, non distended. Absent: tenderness - Routine Extremities Exam Present: no edema, full ROM, normal capillary refill - Routine Back/Spine/Pelvis Exam Back/Spine: Present: full ROM - Routine Skin Exam Present: intact, dry, warm - Routine Neurological Exam Present: alert, oriented X3, CN II-XII intact - Routine Lymphatic Exam Lymphatic: Absent: adenopathy - Routine Psychiatric Exam Present: normal affect Hospital Course This is a general summary of the patient's hospital course. For more details refer to the complete medical record. Hospital course: 01/22/17- Admit Acute respiratory failure with hypoxia requiring oxygen Bilateral pleural effusions Peripheral edema History of uncontrolled hypertension Known pulmonary hypertension Hyperlipidemia Pvn-mypqfjv-uiztkgqso diabetic Chronic kidney disease Chronic back pain GERD Plan Patient to inpatient status under the care of Dr. Quinones for acute respiratory failure with hypoxia and pleural effusions. Did receive one-time dose of Lasix 20 milligrams IV while in the emergency room today. We will continue with scheduled Lasix for more aggressive diuresing. Monitor patient on Cardiac telemetry. Will obtain echocardiogram. Did review last echo results from June 2016. Currently MAGGIC heart failure risk calculator reveals 31 points, which is a 26 % one-year mortality for this patient using her last EF of of 70% Continue to monitor blood pressure carefully. Current recommended hypertension management as per Dr. Liao is to continue on losartan 100 milligrams daily, Coreg 25 milligrams twice a day, Norvasc 2.5 milligrams twice a day. He also recommended Lasix 40 milligrams daily She will likely need to be on this at time of discharge. It appears that patient did not take any of her antihypertensives this morning. Will have patient take the Coreg and losartan now on admission. Recommend avoiding NSAIDs as this can rise blood pressure. Would recommend Tylenol as needed for chronic back pain. SCDs to bilateral lower extremity for DVT prophylaxis Continue on home Prevacid for GI protection given GERD Patient does request to be a full code and this order is written. Will discuss further orders and plan of care with attending, Dr. Quinones. At time of discharge medical care will return to primary care provider, Dr. Austin and doughnut maker, Dr. Liao. 01/23/17 11:52 Acute respiratory failure with hypoxia requiring oxygen related to fluid overload, greatly improved today after IV Lasix Bilateral pleural effusions improved Peripheral edema resolved History of uncontrolled hypertension-her blood pressure today is 148/71 Known pulmonary hypertension Hyperlipidemia Lvx-tqlhluv-avozcovqt diabetic Chronic kidney disease-her creatinine is up today at 1.3 Chronic back pain GERD Plan Monitor patient on Cardiac telemetry. Results of echocardiogram were reviewed yesterday, formal report is not on the chart today. I believe she did have mitral regurg, will await to confirm that with the final reading. Did review last echo results from June 2016. Continue to monitor blood pressure carefully. Current recommended hypertension management as per Dr. Liao is to continue on losartan 100 milligrams daily, Coreg 25 milligrams twice a day, Norvasc 2.5 milligrams twice a day. He also recommended Lasix 40 milligrams daily and we will restart that today. She may need to potassium supplementation as well. Will recheck lab in the morning. Recommend avoiding NSAIDs as this can rise blood pressure. Would recommend Tylenol as needed for chronic back pain. SCDs to bilateral lower extremity for DVT prophylaxis Continue on home Prevacid for GI protection given GERD At time of discharge medical care will return to primary care provider, Dr. Austin and doughnut maker, Dr. Liao. The patient has an appointment was Dr. Liao scheduled for next Tuesday. Plan 01/24/17 Able to be down to room air this morning. She does continue to feel somewhat winded when she is up and ambulating. Will have respiratory therapy obtain an ambulatory saturation. Continue to monitor blood pressure carefully. Continue on current regimen of antihypertensives losartan 100 milligrams daily, Coreg 25 milligrams twice a day , Norvasc 2.5 milligrams twice a day. Continue with Lasix 40 milligrams daily for ongoing diuresising. Monitor potassium as she may require PO supplementation Consult placed to PT and OT to evaluate ambulation and strengthening. Tylenol as needed for chronic back pain. 01/25/17- Discharge Madelyn has done well during her hospitalization. She was found to have pleural effusions with fluid overload and peripheral edema. She reports that she had only had approximately 1 week of Lasix and then at been discontinued. On admission she had significant hypertension. Once diuretics were resumed. Patient has diuresed nicely. Her weight has decreased approximately 8 pounds since admission. Patient has been able to wean down off oxygen is currently breathing on room air without distress. Echocardiogram was performed as revealed earlier in this document. Patient has a plan to follow-up tomorrow with her doughnut maker, Dr. Liao. She is given a copy of the echocardiogram as well as the overnight oximetry to be reviewed. Recommend continuing patient on current blood pressure regimen including Norvasc 2.5 milligrams twice a day, Coreg 25 milligrams twice a day, Cozaar 100 milligrams daily and continue with Lasix 40 grams daily. Patient's electrolytes have been trended during her hospital stay and she has not required any supplemental potassium. However, it is important that this be monitored as she may require oral potassium supplementation in the future. Encouraged her to follow with primary care provider, Dr. Austin in approximately 1 week and get a BMP at that time. Time spent with patient: discharge greater than 30 minutes Discharge Plan - Med Rec/Dispo Referrals/Follow Up: Arnel Austin MD [Family Provider] - (APPOITMENT ON 02/01 10AM. GET LABS AT THIS TIME BMP) Sandeep Liao MD [Physician] - (Follow up tomorrow 01/26 as planned) Truven Instructions: Hypoxia (GEN) Prescriptions: New Acetaminophen [Tylenol] 500 mg PO Q4H tablet Milk of Magnesia [Mom] 30 ml PO BID PRN udc PRN Reason: Constipation Furosemide [Lasix] 40 mg PO DAILY #30 tablet Continue Lovastatin [Mevacor] 20 mg PO HS Amlodipine [Norvasc] 2.5 mg PO BID Losartan [Cozaar] 100 mg PO DAILY Lansoprazole [Prevacid] 15 mg PO BID PRN PRN Reason: Prn Orders Allopurinol [Zyloprim] 100 mg PO HS Carvedilol 25 mg PO BID Discontinued Naproxen Sodium [Aleve] 220 mg PO PRN PRN Reason: Pain Discharge Instructions/Outpatient Orders: Final Provider Discharge Instructions Location: Determined By Patient Final Provider Discharge Instructions Location: Determined By Patient - Disposition 01 Discharged Home, Self-Care <Maribel Quinones - Last Filed: 01/25/17 14:02> Discharge Information Date of admission: 01/22/17 12:12 Attending Physician: Maribel Quinones MD Primary care physician: Arnel Austin MD - Laboratory Labs: 01/24/17 04:36 01/25/17 04:21 Objective Vital signs: Temperature 97.3 F 01/25/17 07:00 Pulse Rate 72 01/25/17 07:00 Respiratory Rate 18 01/25/17 07:00 Blood Pressure 153/71 H 01/25/17 07:00 Pulse Oximetry 95 01/25/17 07:00 Oxygen Delivery Method Room Air Oxygen Flow Rate 2 Hospital Course This is a general summary of the patient's hospital course. For more details refer to the complete medical record. I have independently evaluated and examined this patient. I reviewed the chart, the patient's history, and the [employer] OPERATOR/PA's documented findings as above. We discussed and formulated the assessment and plan as above with additions as below. The patient was seen 1310. The patient reports doing well and slept well during the night. Denies fevers, chills, sweats. Denies sore throat, shortness of breath, dyspnea on exertion, cough, sputum production, chest pain. Denies nausea, vomiting or diarrhea. Is urinating without difficulty, denies dysuria. In general, the patient is alert and oriented 3, cooperative with exam, and in no respiratory distress. HEENT: Head is atraumatic, normocephalic, no conjunctival petechiae, no oral thrush, mucous membranes are moist and pink. Lungs: Clear to auscultation without wheezes, crackles or rhonchi CV: Regular rate and rhythm without murmur Abdomen: Soft, nontender, bowel sounds are present, there is no guarding no rebound. Extremities: No clubbing, no cyanosis, no edema. Skin: Warm and dry no sign of rash Neuro: Patient is alert The patient has done well during her hospitalization. Interestingly in spite of her daily Lasix, she has not required any potassium supplementation during her hospitalization. In addition her blood pressure has become much better during her hospitalization, and was 153/71 on the day of discharge. The patient has an appointment to see Dr. Sandeep Liao tomorrow. Copies of her echo and nocturnal oximetry will be hand carried by her to the appointment.
[2017-01-25 14:16] VITALS: PULSE 65
== END 2017-01-25 16:00 | disposition home or self-care (01) | DRG 186 ==
LOC: ED 08:42 → MED 12:12
PROVIDERS: ADMIT Internal Medicine Infectious Disease; ATTEND Internal Medicine Infectious Disease